=== PATIENT | female | born 1970 | race Caucasian/White ===

== ENCOUNTER 2023-11-20 08:41 | Outpatient (AMB) | payer BC, SELFPAY ==
--- NOTE | 2023-11-20 08:49 | A.SPINEOV_ITS ---
Intake Visit Reasons: Herniated Disc Intake Note: Ms. Dale is here today c/o neck pain. Teacher Learning Disabled Required: No Allergies gabapentin Allergy (Severe, Verified 11/20/23 09:02) Rash pregabalin [From Lyrica] Allergy (Severe, Verified 11/20/23 09:02) Rash Assessment & Plan Assessment & Plan (1) Cervicalgia: Code(s): M54.2 - Cervicalgia Category: Medical Plan Nancy is a self-referred 53-year-old female who comes in today for her 3rd opinion regarding her cervical radiculopathy. She states thus far she has been offered a C7-T1 ACDF by one surgeon, then was told by another that her neck requires no intervention at this time. She would like to see what type of surg earnest we are willing to offer her. She reports that her neck began hurting her again after her last surgery several months ago. She reports that her neck pain is accompanied by a shooting pain down her left arm. When describing this pain she states ?it has the C8 nerve root that runs down the back of my arm all the way to my last 2 fingers. When physically tracing the distribution she runs her fingers down the back of her triceps over elbow to the left 4th and 5th phalanges. She states that [id number] medications do not help her at all, but her prescription oxycodone provides some relief. She has been to physical therapy in the past but does not remember the last time she went. She states that laying down flat helps to relieve her symptoms, and standing up and walking aggravates her symptoms. She does report associated numbness/tingling/burning that accompanies her shooting radicular pain. PMH: History of C5-6 ACDF completed in 2005, history of C6-7 ACDF completed last year. Social hx: Patient does not smoke, reports no substance use. Medications: Oxycodone 5mg q4h. The patient took multiple other medications at home, however she took her patient information form on exiting the office and therefore we do not have a record of the remaining medications. Allergies: Gabapentin, Lyrica. Physical exam: The patient has 5/5 strength in her upper and lower extremities. She reports no sensational deficits. Her reflexes are 2+ intact. She is able to ambulate well and rises from a seated position without difficulty. (-) Isidro's, negative clonus, negative Lhermitte's. Imaging review: MRI of the cervical spine completed at [facility] shows evidence of C5-6, C6-7 ACDF. This appears well healed. There is no cord signal change or evidence of myelomalacia. Normal spondylosis of the cervical spine. There is no evidence of significant disc herniation or central canal / foraminal impingement. Impression: I reviewed Nancy's MRI alongside her which shows expected spondylosis of the cervical spine given her age, with evidence of ACDF procedures from C5-7. I informed her that I do not see anything surgical at C7- T1, nor does the radiology report support this. She asked several questions about her MRI including multiple questions regarding her apophyseal joints. Her MRI is quite degraded in regards to properly visualizing bone quality and I informed her the best option if she would like to review apophyseal pathology would be a CT scan, which she states one of the other neurosurgeons she has seen already ordered. 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 She may also have a concurrent cubital tunnel syndrome which would explain her C7/8 symptoms. 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 I advised the patient that I do not think surgery would be helpful for at this time, and she may want to allow herself the tincture of time alongside physical therapy, lifestyle changes, and pain manag ement to help resolve her issues. She seemed quite averse to this suggestion, and subsequently demanded that I tell her where her pain is coming from, if it is not coming from the C7-T1 area. I informed her that unfortunately I can not adequately answer that question, and can only theorize based on the information I have. The total time spent with this visit with this patient was 45 minutes reviewing history, physical exam, MRI imaging review, and implementation of treatment plan or further diagnostic testing Mario Alberto Oseguera MD,PhD [facility] Coding Level of Care Code Est Pt Level 4 (46093) Diagnoses Cervicalgia M54.2
== END 2023-11-20 09:56 | disposition home or self-care (01) ==
PROVIDERS: Visit Provider Physician Assistant
DX: M54.2 Cervicalgia (principal)
CPT/HCPCS: 99214

== ENCOUNTER → 2023-11-20 08:41 | Outpatient (BNVA) | payer BC, SELFPAY | PROVIDERS: Visit Provider Physician Assistant ==